=== PATIENT | male | born 1965 | race Caucasian/White ===

== ENCOUNTER 2017-10-21 18:37 | Emergency (ER) | payer MEDICAID ==
[~2017-10-21] VITALS: Ht 188 cm; Wt 105.2 kg
[2017-10-21 18:46] VITALS: BP 142/77
== END 2017-10-21 21:15 | disposition left against medical advice (07) ==
LOC: ER 18:37
DX: M79.89 Other specified soft tissue disorders (principal); Z53.21 Procedure and treatment not carried out due to patient leaving prior to being seen by health care provider